=== PATIENT | female | born 1950 | race Caucasian/White ===

== ENCOUNTER → 2019-08-03 | Emergency (ER) | payer OTHER ==
[~2019-08-03] VITALS: Ht 149.9 cm; Wt 60.8 kg
[~2019-08-03] MED LIST: CIPRO500 MG
== END | disposition left against medical advice (07) ==
LOC: ER 13:15
DX: R10.2 Pelvic and perineal pain (principal)

== ENCOUNTER 2019-11-12 16:06 | Inpatient (IN) | payer OTHER ==
[~2019-11-12] VITALS: Ht 147.3 cm; Wt 58.1 kg
[2019-12-06] MEDS ORDERED: PROVENTIL HFA6.7 GM IH (12:16)
[2019-12-11] MEDS ORDERED: FLOVENT HFA12 GM (10:20)
== END 2019-12-19 16:33 | disposition home or self-care (01) | DRG 330 ==
LOC: O/R 12-11 05:36 → SURG 12-11 05:36 → SURH 12-11 07:00 → SURG 12-11 13:18
PROVIDERS: ADMIT Colon & Rectal Surgery; ATTEND Colon & Rectal Surgery
PROC: 4A033R1 Measurement of Arterial Saturation, Peripheral, Percutaneous Approach (ICD-10-PCS; 2019-12-11)
PROC: 3E0F7GC Introduction of Other Therapeutic Substance into Respiratory Tract, Via Natural or Artificial Opening (ICD-10-PCS; 2019-12-11)
PROC: 0DBN4ZZ Excision of Sigmoid Colon, Percutaneous Endoscopic Approach (ICD-10-PCS; principal; 2019-12-11 07:00)
PROC: 4A12X4Z Monitoring of Cardiac Electrical Activity, External Approach (ICD-10-PCS; 2019-12-12)
PROC: 05HY33Z Insertion of Infusion Device into Upper Vein, Percutaneous Approach (ICD-10-PCS; 2019-12-14)
DX: K57.32 Diverticulitis of large intestine without perforation or abscess without bleeding (principal); N32.1 Vesicointestinal fistula; J98.11 Atelectasis; J44.9 Chronic obstructive pulmonary disease, unspecified; J45.20 Mild intermittent asthma, uncomplicated; R10.2 Pelvic and perineal pain; I73.9 Peripheral vascular disease, unspecified; Z98.890 Other specified postprocedural states